=== PATIENT | female | born 1935 | race Caucasian/White ===

== ENCOUNTER 2017-09-12 23:30 | Inpatient (IN) | payer OTHER, MEDICAID ==
[~2017-09-12] VITALS: Ht 157.5 cm; Wt 63.0 kg
[2017-09-12] MEDS ORDERED: ACETAMINOPHEN 325MG TABLET PO STA (23:59)
[2017-09-13] MEDS ORDERED: NITROGLYCERIN OINT 1GM/INCH UDPKT TD ONE
[2017-09-13] MEDS ORDERED: ASPIRIN 81MG TABLET PO ONE
[2017-09-13 00:57] LABS: BASOPHILS % 0.7 % (0.0-2.0); EOSINOPHILS % 1.2 % (0.0-5.0); HEMOGLOBIN. 10.7 g/dL (12.0-16.0); LYMPHOCYTES % 7.9 % (20.0-50.0); MEAN CORPUSCULAR HEMOGLOBIN 28.7 pg (28.0-32.0); MEAN CORPUSCULAR VOLUME 88.6 fL (81.0-99.0); MEAN PLATELET VOLUME 9.1 fl (7.4-10.4); MONOCYTES % 8.8 % (2.0-8.0); NEUTROPHILS % 81.4 % (40.0-76.0); PLATELET 284 x1000/uL (130-400); RED BLOOD CELL COUNT 3.73 mill/uL (4.2-5.4); RED CELL DISTRIBUTION WIDTH 17.6 % (11.6-14.6)
[2017-09-13 00:58] LABS: CHLORIDE 100 mEq/L (98-107)
[2017-09-13 01:00] LABS: PARTIAL THROMBOPLASTIN TIME 26.3 sec (23.4-31.0); PROTHROMBIN TIME 10.8 sec (9.4-11.6)
[2017-09-13 01:02] LABS: ETHANOL BLOOD < 10 mg/dL
[2017-09-13] MEDS ORDERED: INSULIN REGULAR (HUMULIN R) 300UNITS/3ML IV NR (01:45)
[2017-09-13] MEDS ORDERED: SODIUM BICARBONATE 8.4% 1 MEQ/ML 50ML SYR IV NR (01:45)
[2017-09-13] MEDS ORDERED: DEXTROSE 50% WATER 50ML SYRINGE IV NR (01:45)
[2017-09-13] MEDS ORDERED: SODIUM POLYSTYRENE SULFONATE 15 G/60 ML BOT PO NR (01:45)
[2017-09-13] MEDS ORDERED: CALCIUM CHLORIDE 1GM/10ML SYR IV NR (01:45)
[2017-09-13] MEDS ORDERED: LEVOFLOXACIN 750MG PREMIX 150 ML IV ONE (02:00)
[2017-09-13] MEDS ORDERED: LORAZEPAM 2MG/ML CPJ IV PRN (03:30)
[2017-09-13] MEDS ORDERED: HYDROCODONE/ACETAMINOPHEN 5/325MG TABLET PO PRN (03:30)
[2017-09-13] MEDS ORDERED: ONDANSETRON HCL 4MG/2ML VIAL IV PRN (03:30)
[2017-09-13] MEDS ORDERED: GUAIFENESIN 200MG/10ML SUGAR FREE UDC PO PRN (03:30)
[2017-09-13] MEDS ORDERED: DOCUSATE SODIUM 100MG CAPSULE PO PRN (03:30)
[2017-09-13] MEDS ORDERED: CLONIDINE 0.1MG TABLET PO PRN (03:30)
[2017-09-13] MEDS ORDERED: ACETAMINOPHEN 325MG TABLET PO PRN (03:30)
[2017-09-13 04:00] VITALS: BP 142/62
[2017-09-13 05:00] VITALS: BP 130/70
[2017-09-13 08:00] VITALS: BP 152/68
[2017-09-13] MEDS: AMLODIPINE 10MG TABLET PO SCH (09:00)
[2017-09-13] MEDS: ASPIRIN 81MG EC TABLET PO SCH (09:14)
[2017-09-13] MEDS ORDERED: DEXTROSE 50% WATER 50ML SYRINGE IV PRN (09:15)
[2017-09-13 11:11] LABS: BASOPHILS % 0.7 % (0.0-2.0); EOSINOPHILS % 1.3 % (0.0-5.0); HEMATOCRIT. 32.7 % (36.0-48.0); HEMOGLOBIN. 10.9 g/dL (12.0-16.0); LYMPHOCYTES % 7.5 % (20.0-50.0); MEAN CORPUSCULAR HEMOGLOBIN 29.7 pg (28.0-32.0); MEAN CORPUSCULAR VOLUME 89.4 fL (81.0-99.0); MEAN PLATELET VOLUME 9.5 fl (7.4-10.4); MONOCYTES % 8.7 % (2.0-8.0); NEUTROPHILS % 81.8 % (40.0-76.0); PLATELET 263 x1000/uL (130-400); RED BLOOD CELL COUNT 3.66 mill/uL (4.2-5.4); RED CELL DISTRIBUTION WIDTH 17.4 % (11.6-14.6)
[2017-09-13 12:00] VITALS: BP 160/70
[2017-09-13] MEDS: BLOOD SUGAR DIAGNOSTIC STRIP TEST SCH ×3 (12:40→20:35)
[2017-09-13] MEDS: INSULIN LISPRO 100 UNITS/ML SUBCUT SCH ×3 (14:17→20:37)
[2017-09-13 16:00] VITALS: BP 138/77
[2017-09-13 20:07] VITALS: BP 147/60
[2017-09-14 00:05] VITALS: BP 154/60
[2017-09-14 04:00] VITALS: BP 146/68
[2017-09-14 06:05] LABS: BASOPHILS % 0.7 % (0.0-2.0); EOSINOPHILS % 2.1 % (0.0-5.0); HEMATOCRIT. 32.8 % (36.0-48.0); HEMOGLOBIN. 10.8 g/dL (12.0-16.0); LYMPHOCYTES % 16.2 % (20.0-50.0); MEAN CORPUSCULAR HEMOGLOBIN 29.4 pg (28.0-32.0); MEAN PLATELET VOLUME 9.1 fl (7.4-10.4); MONOCYTES % 14.1 % (2.0-8.0); NEUTROPHILS % 66.9 % (40.0-76.0); PLATELET 264 x1000/uL (130-400); RED BLOOD CELL COUNT 3.68 mill/uL (4.2-5.4); RED CELL DISTRIBUTION WIDTH 17.2 % (11.6-14.6)
[2017-09-14 06:19] LABS: CHLORIDE 102 mEq/L (98-107)
[2017-09-14] MEDS: INSULIN LISPRO 100 UNITS/ML SUBCUT SCH ×3 (07:44→18:10)
[2017-09-14] MEDS: BLOOD SUGAR DIAGNOSTIC STRIP TEST SCH ×3 (07:44→18:19)
[2017-09-14 08:00] VITALS: BP 150/63
[2017-09-14] MEDS: ASPIRIN 81MG EC TABLET PO SCH (08:18)
[2017-09-14] MEDS: AMLODIPINE 10MG TABLET PO SCH (08:19)
[2017-09-14 10:19] VITALS: BP 150/63
[2017-09-14 12:00] VITALS: BP 138/79
[2017-09-14 16:00] VITALS: BP 128/74
== END 2017-09-14 17:40 | disposition home or self-care (01) | DRG 291 ==
LOC: ER 23:30 → 7WST 09-13 01:49 → EDBEDREQ 09-13 01:54 → EDBEDREQTM 09-13 01:54 → SUPCPDRO 09-13 03:20 → ENRESERV 09-13 03:51
PROVIDERS: ADMIT Hospitalist; ATTEND Hospitalist
PROC: 5A1D70Z Performance of Urinary Filtration, Intermittent, Less than 6 Hours Per Day (ICD-10-PCS; principal; 2017-09-13)
DX: I13.2 Hypertensive heart and chronic kidney disease with heart failure and with stage 5 chronic kidney disease, or end stage renal disease (principal); I50.33 Acute on chronic diastolic (congestive) heart failure; N18.6 End stage renal disease; J18.9 Pneumonia, unspecified organism; D64.9 Anemia, unspecified; E11.22 Type 2 diabetes mellitus with diabetic chronic kidney disease; E87.5 Hyperkalemia; F41.9 Anxiety disorder, unspecified; Z91.15 Patient's noncompliance with renal dialysis; Z99.2 Dependence on renal dialysis
CPT/HCPCS: 36415; 71045; 80048; 80053; 82962; 83605; 83690; 84484; 85025; 85610; 85730; 87040; 93005; 93306; 96365; 96375; 97162; 99285; G0482; J1815; J1956; J2405; J3490

== ENCOUNTER 2018-02-17 16:00 | Inpatient (IN) | payer OTHER, MEDICAID ==
[~2018-02-17] VITALS: Ht 157.5 cm; Wt 60.8 kg
[2018-02-17 19:56] LABS: CHLORIDE 97 mEq/L (98-107)
[2018-02-17 20:02] LABS: BASOPHILS % 0.5 % (0.0-2.0); EOSINOPHILS % 0.8 % (0.0-5.0); HEMATOCRIT. 28.8 % (36.0-48.0); HEMOGLOBIN. 9.7 g/dL (12.0-16.0); MEAN CORPUSCULAR HEMOGLOBIN 31.5 pg (28.0-32.0); MEAN CORPUSCULAR VOLUME 93.2 fL (81.0-99.0); MEAN PLATELET VOLUME 9.4 fl (7.4-10.4); MONOCYTES % 7.8 % (2.0-8.0); NEUTROPHILS % 81.9 % (40.0-76.0); PLATELET 301 x1000/uL (130-400); RED CELL DISTRIBUTION WIDTH 13.5 % (11.6-14.6)
[2018-02-17] MEDS ORDERED: MORPHINE SULFATE 2 MG/ML CPJ (NOT FOR IM USE) IV NR (23:31)
[2018-02-18] MEDS ORDERED: HYDROCODONE/ACETAMINOPHEN 5/325MG TABLET PO ONE (02:30)
[2018-02-18] MEDS ORDERED: DIPHENHYDRAMINE 50MG/ML VIAL IV PRN (02:45)
[2018-02-18] MEDS ORDERED: CLONIDINE 0.1MG TABLET PO PRN (02:45)
[2018-02-18] MEDS ORDERED: NA PHOS,M-B/NA PHOS,DI-BA ENEMA 118ML PR PRN (02:45)
[2018-02-18] MEDS ORDERED: DEXTROSE 50% WATER 50ML SYRINGE IV PRN (02:45)
[2018-02-18] MEDS ORDERED: IPRATROPIUM/ALBUTEROL 0.5-3(2.5)MG/3ML NEB INH PRN (02:45)
[2018-02-18] MEDS ORDERED: ONDANSETRON HCL 4MG/2ML INJ IV PRN (02:45)
[2018-02-18] MEDS ORDERED: MAGNESIUM/ALUMINUM HYDROXIDE/SIMETHICONE 30ML UDC PO PRN (02:45)
[2018-02-18] MEDS ORDERED: ENOXAPARIN 40MG/0.4ML SYR SUBCUT SCH (02:45)
[2018-02-18] MEDS ORDERED: ACETAMINOPHEN 325MG TABLET PO PRN (02:45)
[2018-02-18] MEDS ORDERED: ACETAMINOPHEN 650MG SUPP PR PRN (02:45)
[2018-02-18] MEDS ORDERED: ACETAMINOPHEN 650MG/20.3ML UDC GT PRN (02:45)
[2018-02-18] MEDS ORDERED: HYDROCODONE/ACETAMINOPHEN 5/325MG TABLET PO PRN (02:45)
[2018-02-18 04:28] LABS: CLARITY URINE CLOUDY (CLEAR); COLOR URINE YELLOW (YELLOW); KETONES URINE NEGATIVE (NEGATIVE); LEUKOCYTE ESTERASE URINE 2+ (NEGATIVE); NITRITE URINE NEGATIVE (NEGATIVE); OCCULT BLOOD URINE NEGATIVE (NEGATIVE); PROTEIN URINE 3+ (NEGATIVE); SPECIFIC GRAVITY URINE 1.016 (1.005-1.030); UROBILINOGEN URINE 0.2 E.U./dL (0.2-1.0)
[2018-02-18 04:45] LABS: *AMPHETAMINES SCREEN URINE NEGATIVE (NEGATIVE)
[2018-02-18 04:46] LABS: *BARBITURATES SCREEN URINE NEGATIVE (NEGATIVE); *BENZODIAZEPINES SCREEN URINE NEGATIVE (NEGATIVE); *COCAINE SCREEN URINE NEGATIVE (NEGATIVE); METHADONE URINE SCREEN NEGATIVE (NEGATIVE); OPIATES URINE SCREEN NEGATIVE (NEGATIVE); PHENCYCLIDINE URINE SCREEN NEGATIVE (NEGATIVE)
[2018-02-18 04:47] LABS: CANNABINOID URINE SCREEN NEGATIVE (NEGATIVE)
[2018-02-18 06:36] LABS: CREATINE KINASE 29 IU/L (26-192)
[2018-02-18 06:37] LABS: CREATINE KINASE MB FRACTION < 1.0 ng/mL (0.5-3.6)
[2018-02-18] MEDS ORDERED: CEFTRIAXONE 1 G PREMIX 50 ML IV SCH ×2 (11:00→17:00)
[2018-02-18 12:00] VITALS: BP 146/71
[2018-02-18] MEDS: INSULIN LISPRO 100 UNITS/ML SUBCUT SCH ×3 (12:50→21:23)
[2018-02-18] MEDS: BLOOD SUGAR DIAGNOSTIC STRIP TEST SCH ×4 (12:50→21:03)
[2018-02-18 14:00] VITALS: BP 124/56
[2018-02-18] MEDS: FOLIC ACID/VITAMIN B COMP W-C TABLET PO SCH (14:50)
[2018-02-18] MEDS: ASPIRIN 81MG EC TABLET PO SCH (14:50)
[2018-02-18] MEDS: ENOXAPARIN 30MG/0.3ML SYR SUBCUT SCH (14:52)
[2018-02-18] MEDS ORDERED: LIDO1KIT30 TP (15:15)
[2018-02-18] MEDS ORDERED: LIDO30CR TP (15:15)
[2018-02-18] MEDS ORDERED: ONDA4TAB11 PO (15:15)
[2018-02-18] MEDS ORDERED: RANI300T4 PO (15:15)
[2018-02-18] MEDS ORDERED: FERR325T6 PO (15:15)
[2018-02-18] MEDS ORDERED: DOXY100T28 PO (15:15)
[2018-02-18] MEDS ORDERED: ATOR40TA70 MT (15:31)
[2018-02-18] MEDS ORDERED: PANT40SU PO (15:31)
[2018-02-18] MEDS ORDERED: DEXT1TAB49 PO (15:31)
[2018-02-18] MEDS ORDERED: ISOS30TA6 PO (15:31)
[2018-02-18] MEDS ORDERED: DOCU-150 PO (15:31)
[2018-02-18] MEDS ORDERED: OMEP20CA10 PO (15:31)
[2018-02-18] MEDS ORDERED: [UNRECOGNIZED DRUG - CODE] MC (15:31)
[2018-02-18] MEDS ORDERED: ASPI-1158 PO (15:31)
[2018-02-18] MEDS ORDERED: ATOR40TA70 PO (15:31)
[2018-02-18] MEDS ORDERED: INSU100I13 SQ (15:31)
[2018-02-18] MEDS ORDERED: OMEG1CAP28 PO (15:31)
[2018-02-18] MEDS ORDERED: TRAM50TA94 PO (15:31)
[2018-02-18 16:00] VITALS: BP 141/64
[2018-02-18 16:21] LABS: BASOPHILS % 0.6 % (0.0-2.0); EOSINOPHILS % 2.5 % (0.0-5.0); HEMATOCRIT. 25.8 % (36.0-48.0); HEMOGLOBIN. 8.7 g/dL (12.0-16.0); LYMPHOCYTES % 10.5 % (20.0-50.0); MEAN CORPUSCULAR HEMOGLOBIN 31.4 pg (28.0-32.0); MEAN CORPUSCULAR VOLUME 92.7 fL (81.0-99.0); MEAN PLATELET VOLUME 9.5 fl (7.4-10.4); NEUTROPHILS % 76.4 % (40.0-76.0); PLATELET 263 x1000/uL (130-400); RED BLOOD CELL COUNT 2.79 mill/uL (4.2-5.4); RED CELL DISTRIBUTION WIDTH 13.8 % (11.6-14.6)
[2018-02-18 16:22] LABS: CHLORIDE 98 mEq/L (98-107)
[2018-02-18 17:18] LABS: CREATINE KINASE 30 IU/L (26-192); CREATINE KINASE MB FRACTION < 1.0 ng/mL (0.5-3.6)
[2018-02-18 20:00] VITALS: BP 133/56
[2018-02-18] MEDS ORDERED: LISI-186 MT (20:03)
[2018-02-18] MEDS ORDERED: CARV6.2548 MT (20:03)
[2018-02-18] MEDS ORDERED: METO5TAB86 PO (20:03)
[2018-02-18] MEDS ORDERED: LIDO700A30 TP (20:03)
[2018-02-18] MEDS ORDERED: NEPVIT MT (20:03)
[2018-02-18] MEDS ORDERED: NIFE20CA PO (20:03)
[2018-02-18] MEDS ORDERED: INSU100I28 SQ (20:03)
[2018-02-18] MEDS ORDERED: NITR0.4T49 SL (20:03)
[2018-02-18] MEDS ORDERED: CYCL30DR EACHEYE (20:03)
[2018-02-18] MEDS ORDERED: AZEL205. BOTHNSTRLS (20:03)
[2018-02-19] VITALS: BP 121/56
[2018-02-19 04:00] VITALS: BP 156/70
[2018-02-19] MEDS: BLOOD SUGAR DIAGNOSTIC STRIP TEST SCH ×4 (06:16→21:15)
[2018-02-19] MEDS: INSULIN LISPRO 100 UNITS/ML SUBCUT SCH ×3 (06:20→17:01)
[2018-02-19 07:54] LABS: CHLORIDE 96 mEq/L (98-107)
[2018-02-19 08:00] VITALS: BP 143/57
[2018-02-19 08:03] LABS: PHOSPHORUS 5.4 mg/dL (2.5-4.9)
[2018-02-19 08:04] LABS: BASOPHILS % 0.6 % (0.0-2.0); EOSINOPHILS % 2.4 % (0.0-5.0); HEMATOCRIT. 26.3 % (36.0-48.0); LDL CHOLESTEROL 101 mg/dL (5-100); LYMPHOCYTES % 13.8 % (20.0-50.0); MEAN CORPUSCULAR HEMOGLOBIN 31.7 pg (28.0-32.0); MEAN CORPUSCULAR VOLUME 92.6 fL (81.0-99.0); MEAN PLATELET VOLUME 9.3 fl (7.4-10.4); MONOCYTES % 8.1 % (2.0-8.0); NEUTROPHILS % 75.1 % (40.0-76.0); PLATELET 286 x1000/uL (130-400); RED BLOOD CELL COUNT 2.84 mill/uL (4.2-5.4); RED CELL DISTRIBUTION WIDTH 13.5 % (11.6-14.6)
[2018-02-19 08:05] LABS: HDL CHOLESTEROL 41 mg/dL (40-59)
[2018-02-19] MEDS: FOLIC ACID/VITAMIN B COMP W-C TABLET PO SCH (08:27)
[2018-02-19] MEDS: ENOXAPARIN 30MG/0.3ML SYR SUBCUT SCH (08:27)
[2018-02-19] MEDS: ASPIRIN 81MG EC TABLET PO SCH (08:27)
[2018-02-19 12:00] VITALS: BP 135/67
[2018-02-19 16:00] VITALS: BP 114/50
[2018-02-19 19:46] VITALS: BP 120/50
[2018-02-19] MEDS ORDERED: EPOETIN ALFA 10000UNITS/ML VIAL SUBCUT SCH (21:00)
== END 2018-02-19 22:05 | disposition short-term general hospital (02) | DRG 689 ==
LOC: ER 17:42 → 6EST 22:10 → EDBEDREQTM 22:15 → EDBEDREQ 22:15 → EDBEDREQSVC 02-18 08:55 → EDBEDREQ 02-18 08:55 → ENRESERV 02-18 09:24 → 6EST 02-19 14:33
PROVIDERS: ADMIT Family Medicine; ATTEND Family Medicine
PROC: 5A1D70Z Performance of Urinary Filtration, Intermittent, Less than 6 Hours Per Day (ICD-10-PCS; principal; 2018-02-19)
DX: N39.0 Urinary tract infection, site not specified (principal); N18.6 End stage renal disease; E44.1 Mild protein-calorie malnutrition; I13.2 Hypertensive heart and chronic kidney disease with heart failure and with stage 5 chronic kidney disease, or end stage renal disease; E78.5 Hyperlipidemia, unspecified; E11.22 Type 2 diabetes mellitus with diabetic chronic kidney disease; E87.5 Hyperkalemia; D63.8 Anemia in other chronic diseases classified elsewhere; I50.9 Heart failure, unspecified; Z99.2 Dependence on renal dialysis; Z68.24 Body mass index [BMI] 24.0-24.9, adult
CPT/HCPCS: 36415; 71045; 74018; 80061; 80305; 82550; 82553; 82962; 83880; 84100; 84484; 93005; 96374; 99285; J0696; J0885; J1650; J1815; J2270; J2405; J7050